=== PATIENT | female | born 1980 | race Caucasian/White ===

== ENCOUNTER 2017-06-22 00:49 | Emergency (ER) | payer SELFPAY ==
[~2017-06-22] VITALS: Ht 152.4 cm; Wt 78.2 kg
[2017-06-22 00:55] VITALS: Ht 152.4 cm; Wt 78.2 kg
== END 2017-06-22 01:12 | disposition left against medical advice (07) ==
LOC: FTE 00:49
DX: Z53.21 Procedure and treatment not carried out due to patient leaving prior to being seen by health care provider (principal)